=== PATIENT | male | born 1980 | race Caucasian/White ===

== ENCOUNTER 2017-09-20 19:57 | Emergency (ER) | payer OTHER ==
[~2017-09-20] VITALS: Ht 177.8 cm; Wt 99.8 kg
[~2017-09-20 19:57] MED LIST: ACET-2869 PO; DOCU-299 PO; GLIP5TAB13 PO; LACT10CA PO; LEVO750T2 PO; LISI10TA11 PO; METF850T PO
[2017-09-20 20:20] VITALS: BP 122/90
[2017-09-20 20:25] VITALS: BP 122/90
--- NOTE | 2017-09-20 20:25 | NUR ---
TO LOBBY, A/W LAURA SHINE ERMD NOTED
--- NOTE | 2017-09-20 23:54 | NUR ---
PT AMBULATED TO OF
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
--- NOTE | 2017-09-21 00:45 | NUR ---
WOUND PACKING REMOVED AND REPLACED BY DR MONTIEL. PT TOLERATED WELL.
--- NOTE | 2017-09-21 01:20 | NUR ---
Patient discharged with v/s stable. Written and verbal after care instructions given and explained. Patient verbalized understanding. Ambulatory with steady gait. All questions addressed prior to discharge. Advised to follow up with PMD.
== END 2017-09-21 01:20 | disposition home or self-care (01) ==
LOC: MED 19:57
DX: Z48.01 Encounter for change or removal of surgical wound dressing (principal); E11.621 Type 2 diabetes mellitus with foot ulcer; Z91.013 Allergy to seafood
CPT/HCPCS: 99282

== ENCOUNTER 2019-06-26 20:13 | Emergency (ER) | payer SELFPAY ==
[~2019-06-26] VITALS: Ht 177.8 cm; Wt 81.6 kg
[~2019-06-26 20:13] MED LIST changes: -ACET-2869 PO; +HYDR-5122 PO
--- NOTE | 2019-06-26 20:19 | NUR ---
PT BIBA BLS TO ER BED 10
[2019-06-26 20:20] VITALS: BP 146/92
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
--- NOTE | 2019-06-26 20:30 | NUR ---
[place] [employer] @BEDSIDE.
[2019-06-26 20:51] VITALS: BP 146/92
--- NOTE | 2019-06-26 20:51 | NUR ---
PATIENT [facility] [employer]. PATIENT EXAMINED BY DR. HORNER. PATIENT MEDICALLY CLEARED AND RELEASED IN CUSTODY IN STABLE CONDITION. ORIGINAL PRE-BOOK FORM GIVEN TO OFFICER ANMOL.
== END 2019-06-26 20:51 | disposition home or self-care (01) ==
LOC: MED 20:13
DX: F10.129 Alcohol abuse with intoxication, unspecified (principal); E11.9 Type 2 diabetes mellitus without complications; Z79.84 Long term (current) use of oral hypoglycemic drugs; Z79.899 Other long term (current) drug therapy; Z91.013 Allergy to seafood; Z02.89 Encounter for other administrative examinations
CPT/HCPCS: 99283